=== PATIENT | female | born 1995 | race Hispanic/Latino ===

== ENCOUNTER 2018-12-26 08:47 | Emergency (ER) | payer SELFPAY ==
--- NOTE | 2018-12-26 11:00 | EDPHYS ---
Physician Documentation [facility] Name: Helen Maxwell Age: 23 yrs Sex: Female : 1995 Arrival Date: 12/26/2018 Time: 08:51 Bed 16 Private MD: ED Physician Carlos Prescott HPI: 12/26 10:08 This 23 yrs old Female presents to ER via Ambulatory with complaints of jr8 Vomiting, throat problem. 10:08 The patient presents to the emergency department with vomiting, 1 times since the onset jr8 of symptoms. Onset: The symptoms/episode began/occurred acutely, last night. Possible causes: unknown. The symptoms are aggravated by nothing. The symptoms are alleviated by nothing. Associated signs and symptoms: Pertinent positives: sore throat. Severity of symptoms: At their worst the symptoms were mild in the emergency department the symptoms have improved mildly. The patient has not experienced similar symptoms in the past. The patient has not recently seen a physician. Patient stated that she felt nauseated last night and then burped. As soon as she burped she vomited. No vomiting, abd pain, or diarrhea since incident. Stated that she went to bed and woke up with sore throat now. Denies any other symptoms and feels better otherwise . 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 - Social history:: Smoking status: Patient/guardian denies using tobacco. - Ebola Screening: : No symptoms or risks identified at this time. ROS: 10:08 Constitutional: Negative for fever, chills, and weight loss. jr8 10:08 ENT: Positive for sore throat, Negative for drainage from ear(s), ear pain, nasal discharge, rhinorrhea, sinus congestion, sinus pain, difficulty swallowing, difficulty handling secretions, hoarseness. 10:08 Abdomen/GI: Positive for nausea and vomiting, Negative for abdominal pain, diarrhea, abdominal cramps, abdominal distension, anorexia, dysphagia, hematemesis, black/tarry stool, rectal pain, rectal bleeding, bowel incontinence, flatulence. 10:08 All other systems are negative. Exam: 10:08 Constitutional: This is a well developed, well nourished patient who is awake, alert, jr8 and in no acute distress. Eyes: Pupils equal round and reactive to light, extra-ocular motions intact. Lids and lashes normal. Conjunctiva and sclera are non-icteric and not injected. Cornea within normal limits. Periorbital areas with no swelling, redness, or edema. ENT: Nares patent. No nasal discharge, no septal abnormalities noted. Tympanic membranes are normal and external auditory canals are clear. Oropharynx with no redness, swelling, or masses, exudates, or evidence of obstruction, uvula midline. Mucous membranes moist. Neck: Trachea midline, no thyromegaly or masses palpated, and no cervical lymphadenopathy. Supple, full range of motion without nuchal rigidity, or vertebral point tenderness. No Meningismus. Cardiovascular: Regular rate and rhythm with a normal S1 and S2. No gallops, murmurs, or rubs. Normal PMI, no JVD. No pulse deficits. Respiratory: Lungs have equal breath sounds bilaterally, clear to auscultation and percussion. No rales, rhonchi or wheezes noted. No increased work of breathing, no retractions or nasal flaring. Abdomen/GI: Soft, non-tender, with normal bowel sounds. No distension or tympany. No guarding or rebound. No evidence of tenderness throughout. Back: No spinal tenderness. No costovertebral tenderness. Full range of motion. Skin: Warm, dry with normal turgor. Normal color with no rashes, no lesions, and no evidence of cellulitis. MS/ Extremity: Pulses equal, no cyanosis. Neurovascular intact. Full, normal range of motion. Neuro: Awake and alert, GCS 15, oriented to person, place, time, and situation. Cranial nerves II-XII grossly intact. Motor strength 5/5 in all extremities. Sensory grossly intact. Cerebellar exam normal. Normal gait. Vital Signs: 09:00 BP 136 / 80; Pulse 63; Resp 16 S; Temp 98.3(O); Pulse Ox 100% on R/A; Weight 54.43 kg aa5 (R); Height 5 ft. 0 in. (152.40 cm) (R); Pain 0/10; 09:00 Body Mass Index 23.44 (54.43 kg, 152.40 cm) aa5 MDM: 08:55 Patient medically screened. jr8 10:59 Data reviewed: vital signs, nurses notes, lab test result(s), strep negative. Data jr8 interpreted: Pulse oximetry: on room air is 100 %. Interpretation: normal. Counseling: I had a detailed discussion with the patient and/or guardian regarding: the historical points, exam findings, and any diagnostic results supporting the discharge/admit diagnosis, lab results, the need for outpatient follow up, a family practitioner, to return to the emergency department if symptoms worsen or persist or if there are any questions or concerns that arise at home. 11:00 ED course: Discussed with patient that the sore throat is probably secondary to the jr8 vomiting and acid itself. No other pathologic findings on exam or labs. Patient good with this and will f/u. Feels much better . 12/26 09:47 Order name: Strep; Complete Time: 11:02 jr8 12/26 10:59 Order name: Throat Culture EDMS Administered Medications: No medications were administered Disposition: 15:38 Co-signature as Attending Physician, Carlos Prescott MD I agree with the assessment and rachelle plan of care. Disposition: 12/26/18 10:59 Discharged to Home. Impression: Pain in throat, Vomiting. - Condition is Stable. - Discharge Instructions: Nausea and Vomiting, Adult. - Prescriptions for Zofran 4 mg Oral Tablet - take 1 tablet by ORAL route every 12 hours As needed; 20 tablet. - Work release form, Medication Reconciliation Form, Thank You Letter, Antibiotic Education, Prescription Opioid Use form. - Follow up: Private Physician; When: 2 - 3 days; Reason: Recheck today's complaints, Continuance of care, Re-evaluation by your physician. - Problem is new. - Symptoms have improved. Signatures: Dispatcher [employer] EDMS Carlos Prescott MD MD cha Calderon, Audri RN RN aa5 Maximiliano Finnegan PA PA jr8 Corrections: (The following items were deleted from the chart) 11:15 10:59 12/26/2018 10:59 Discharged to Home. Impression: Pain in throat; Vomiting. aa5 Condition is Stable. Forms are Medication Reconciliation Form, Thank You Letter, Antibiotic Education, Prescription Opioid Use. Follow up: Private Physician; When: 2 - 3 days; Reason: Recheck today's complaints, Continuance of care, Re-evaluation by your physician. Problem is new. Symptoms have improved. jr8 11:18 11:15 12/26/2018 10:59 Discharged to Home. Impression: Pain in throat; Vomiting. aa5 Condition is Stable. Discharge Instructions: Nausea and Vomiting, Adult. Prescriptions for Zofran 4 mg Oral Tablet - take 1 tablet by ORAL route every 12 hours As needed; 20 tablet. and Forms are Medication Reconciliation Form, Thank You Letter, Antibiotic Education, Prescription Opioid Use. Follow up: Private Physician; When: 2 - 3 days; Reason: Recheck today's complaints, Continuance of care, Re-evaluation by your physician. Problem is new. Symptoms have improved. aa5
--- NOTE | 2018-12-26 11:00 | ER ---
Nurse's Notes [facility] Name: Helen Maxwell Age: 23 yrs Sex: Female : 1995 Arrival Date: 12/26/2018 Time: 08:51 Bed 16 Private MD: Diagnosis: Pain in throat;Vomiting Presentation: 12/26 09:00 Presenting complaint: Patient states: vomiting during the night. Pt states "I am not aa5 nauseated anymore but I woke up feeling like my throat is swollen". Pt denies sore throat. 09:00 Transition of care: patient was not received from another setting of care. Onset of aa5 symptoms was December 26, 2018. Risk Assessment: Do you want to hurt yourself or someone else? Patient reports no desire to harm self or others. Initial Sepsis Screen: Does the patient meet any 2 criteria? No. Patient's initial sepsis screen is negative. Does the patient have a suspected source of infection? No. Patient's initial sepsis screen is negative. Care prior to arrival: None. 09:00 Method Of Arrival: Ambulatory aa5 09:00 Acuity: ALEXX 4 aa5 Triage Assessment: 09:00 General: Appears comfortable, Behavior is calm, cooperative. GI: Reports vomiting. 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 - Social history:: Smoking status: Patient/guardian denies using tobacco. - Ebola Screening: : No symptoms or risks identified at this time. Screenin:00 Abuse screen: Denies threats or abuse. Nutritional screening: No deficits noted. aa5 Tuberculosis screening: No symptoms or risk factors identified. Fall Risk None identified. Assessment: 09:00 General: Appears comfortable, Behavior is calm, cooperative. Pain: Denies pain. Neuro: aa5 Level of Consciousness is awake, alert, obeys commands, Oriented to person, place, time, situation. Cardiovascular: Heart tones S1 S2 present Rhythm is regular. Respiratory: Airway is patent Respiratory effort is even, unlabored, Respiratory pattern is regular, symmetrical. GI: Abdomen is round non-distended, Bowel sounds present X 4 quads. Abd is soft and non tender X 4 quads. Reports nausea, vomiting. : No signs and/or symptoms were reported regarding the genitourinary system. Denies burning with urination. EENT: Throat is pink with gag reflex present. Derm: Skin is pink, warm \\T\\ dry. Musculoskeletal: Range of motion: intact in all extremities. 09:58 Reassessment: Patient is alert, oriented x 3, equal unlabored respirations, skin aa5 warm/dry/pink. Strep sent to lab . 11:10 Reassessment: Patient is alert, oriented x 3, equal unlabored respirations, skin aa5 warm/dry/pink. Vital Signs: 09:00 BP 136 / 80; Pulse 63; Resp 16 S; Temp 98.3(O); Pulse Ox 100% on R/A; Weight 54.43 kg aa5 (R); Height 5 ft. 0 in. (152.40 cm) (R); Pain 0/10; 09:00 Body Mass Index 23.44 (54.43 kg, 152.40 cm) aa5 ED Course: 08:51 Patient arrived in ED. mr 08:54 Maximiliano Finnegan PA is PHCP. jr8 08:54 Carlos Prescott MD is Attending Physician. jr8 08:55 Arm band placed on Patient placed in an exam room, on a stretcher. aa5 08:55 Patient has correct armband on for positive identification. Bed in low position. Call aa5 light in reach. Side rails up X 1. 09:02 Beth Blum, GAUDENCIO is Primary Nurse. aa5 09:14 Triage completed. aa5 11:10 No provider procedures requiring assistance completed. Patient did not have IV access aa5 during this emergency room visit. Administered Medications: No medications were administered Outcome: 10:59 Discharge ordered by . jr8 11:10 Discharged to home ambulatory, with family. aa5 11:10 Condition: good 11:10 Discharge instructions given to patient, Instructed on discharge instructions, follow up and referral plans. medication usage, Demonstrated understanding of instructions, follow-up care, medications. 11:15 Patient left the ED. aa5 Signatures: Ameena Bailey mr Beth Blum, GAUDENCIO RN aa5 Maximiliano Finnegan PA PA jr8 Corrections: (The following items were deleted from the chart) 11:35 11:18 Patient left the ED. jaye aa5
== END 2018-12-26 11:18 | disposition home or self-care (01) ==
LOC: ER 08:47
DX: R11.10 Vomiting, unspecified (principal); R07.0 Pain in throat
CPT/HCPCS: 87070; 87081; 99281

== ENCOUNTER 2019-03-03 04:10 | Emergency (ER) | payer SELFPAY ==
[2019-03-03] MEDS ORDERED: FAMOTIDINE 20 MG/2 ML VIAL IV ONE (05:07)
[2019-03-03] MEDS ORDERED: MAGNE/ALUM HYDROXD 30 ML UCUP ONE (05:07)
[2019-03-03] MEDS ORDERED: LIDOCAINE VISCOUS 2% SOLN 15 ML UDC ONE (05:07)
[2019-03-03] MEDS ORDERED: NA CHLORIDE 0.9% 500 ML ONE (05:09)
[2019-03-03 05:33] LABS: Absolute Lymphocytes (CBC) 2.1 K/uL (0.7-4.9); Basophils % 0.2 % (0-1.3); Hematocrit 39.4 % (36.0-45.0); Lymphocytes % 13.9 % (15.3-44.8); MPV 9.2 fL (7.6-11.3); RBC Red Blood Cell Count 4.31 M/uL (3.86-4.86)
[2019-03-03 05:48] LABS: ALT/SGPT 19 U/L (12-78); AST/SGOT 11 U/L (15-37); Albumin 3.9 g/dL (3.4-5.0); Alkaline Phosphatase 103 U/L (45-117); BUN Blood Urea Nitrogen 11 mg/dL (7-18); Bicarbonate 24 mmol/L (21-32); Bilirubin Direct 0.1 mg/dL (0-0.2); Bilirubin Total 0.3 mg/dL (0.2-1.0); Glucose Level 86 mg/dL (74-106); Lipase 83 U/L (73-393); Potassium 3.8 mmol/L (3.5-5.1); Protein, Total 7.4 g/dL (6.4-8.2); Sodium Level 137 mmol/L (136-145)
[2019-03-03] MEDS ORDERED: NA CHLORIDE 0.9% 1,000 ML ONE (06:15)
--- NOTE | 2019-03-03 07:51 | EDPHYS ---
Physician Documentation [facility] Name: Helen Maxwell Age: 23 yrs Sex: Female : 1995 Arrival Date: 03/03/2019 Time: 04:13 Bed 17 Private MD: ED Physician Carlos Prescott HPI: 03/03 05:04 This 23 yrs old Female presents to ER via Ambulatory with complaints of rachelle Abdominal Pain. 05:04 The patient presents with abdominal pain in the epigastric area, in the upper abdomen, rachelle in the lower abdomen. Onset: The symptoms/episode began/occurred just prior to arrival, last night. The symptoms do not radiate. Associated signs and symptoms: none. The symptoms are described as burning, crampy. Modifying factors: The symptoms are alleviated by nothing, the symptoms are aggravated by food. Severity of pain: At its worst the pain was moderate in the emergency department the pain is unchanged. The patient has not experienced similar symptoms in the past. 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 - Social history:: Smoking status: Patient uses tobacco products, vape. - Ebola Screening: : No symptoms or risks identified at this time. - Family history:: not pertinent. ROS: 05:04 Constitutional: Negative for fever, chills, and weight loss, Eyes: Negative for injury, rachelle pain, redness, and discharge, ENT: Negative for injury, pain, and discharge, Neck: Negative for injury, pain, and swelling, Cardiovascular: Negative for chest pain, palpitations, and edema, Respiratory: Negative for shortness of breath, cough, wheezing, and pleuritic chest pain, Back: Negative for injury and pain, : Negative for injury, bleeding, discharge, and swelling, MS/Extremity: Negative for injury and deformity, Skin: Negative for injury, rash, and discoloration, Neuro: Negative for headache, weakness, numbness, tingling, and seizure. 05:04 Abdomen/GI: Positive for abdominal pain, of the right upper quadrant, left upper quadrant, right lower quadrant and left lower quadrant. Exam: 05:04 Constitutional: This is a well developed, well nourished patient who is awake, alert, rachelle and in no acute distress. Head/Face: Normocephalic, atraumatic. Eyes: Pupils equal round and reactive to light, extra-ocular motions intact. Lids and lashes normal. Conjunctiva and sclera are non-icteric and not injected. Cornea within normal limits. Periorbital areas with no swelling, redness, or edema. ENT: Nares patent. No nasal discharge, no septal abnormalities noted. Tympanic membranes are normal and external auditory canals are clear. Oropharynx with no redness, swelling, or masses, exudates, or evidence of obstruction, uvula midline. Mucous membranes moist. Neck: Trachea midline, no thyromegaly or masses palpated, and no cervical lymphadenopathy. Supple, full range of motion without nuchal rigidity, or vertebral point tenderness. No Meningismus. Chest/axilla: Normal chest wall appearance and motion. Nontender with no deformity. No lesions are appreciated. Cardiovascular: Regular rate and rhythm with a normal S1 and S2. No gallops, murmurs, or rubs. Normal PMI, no JVD. No pulse deficits. Respiratory: Lungs have equal breath sounds bilaterally, clear to auscultation and percussion. No rales, rhonchi or wheezes noted. No increased work of breathing, no retractions or nasal flaring. Abdomen/GI: Soft, non-tender, with normal bowel sounds. No distension or tympany. No guarding or rebound. No evidence of tenderness throughout. Back: No spinal tenderness. No costovertebral tenderness. Full range of motion. Skin: Warm, dry with normal turgor. Normal color with no rashes, no lesions, and no evidence of cellulitis. MS/ Extremity: Pulses equal, no cyanosis. Neurovascular intact. Full, normal range of motion. Neuro: Awake and alert, GCS 15, oriented to person, place, time, and situation. Cranial nerves II-XII grossly intact. Motor strength 5/5 in all extremities. Sensory grossly intact. Cerebellar exam normal. Normal gait. Psych: Awake, alert, with orientation to person, place and time. Behavior, mood, and affect are within normal limits. Vital Signs: 04:15 BP 136 / 98; Pulse 77; Resp 17 S; Temp 98.3(O); Pulse Ox 100% on R/A; Weight 52.16 kg cc3 (R); Height 5 ft. 0 in. (152.40 cm) (R); Pain 10/10; 05:30 BP 124 / 81; Pulse 73; Resp 17 S; Pulse Ox 100% on R/A; cc3 06:32 BP 114 / 64; Pulse 81; Resp 17 S; Pulse Ox 100% on R/A; Pain 0/10; cc3 07:31 BP 112 / 79; Pulse 68; Resp 18; Pulse Ox 99% on R/A; Pain 0/10; em 04:15 Body Mass Index 22.46 (52.16 kg, 152.40 cm) cc3 MDM: 04:17 Patient medically screened. [facility] 05:06 Data reviewed: vital signs, nurses notes, lab test result(s), radiologic studies, plain rachelle films. 03/03 05:04 Order name: Basic Metabolic Panel; Complete Time: 05:49 [facility] 03/03 05:04 Order name: CBC with Diff; Complete Time: 05:49 [facility] 03/03 05:04 Order name: Creatinine for Radiology; Complete Time: 05:49 [facility] 03/03 05:04 Order name: Hepatic Function; Complete Time: 05:49 [facility] 03/03 05:04 Order name: Lipase; Complete Time: 05:49 [facility] 03/03 06:11 Order name: Urine Dipstick--Ancillary (enter results) [facility] 03/03 05:04 Order name: IV Saline Lock; Complete Time: 05:28 [facility] 03/03 05:07 Order name: Abdomen 1 View (KUB) XRAY [facility] 03/03 05:52 Order name: CT Abd/Pelvis - IV Contrast Only: ro appy [facility] 03/03 06:11 Order name: Urine --Ancillary (enter results) [facility] 03/03 05:04 Order name: Labs collected and sent; Complete Time: 05:28 [facility] 03/03 05:04 Order name: Urine Dipstick-Ancillary (obtain specimen); Complete Time: 06:35 [facility] 03/03 05:04 Order name: Urine Test (obtain specimen); Complete Time: 06:35 [facility] Administered Medications: 05:10 Drug: GI Cocktail without - (Maalox Suspension 30 ml, Lidocaine Liquid 2 % 15 cc3 ml) Route: PO; 05:40 Follow up: Response: No adverse reaction; Pain is decreased cc3 05:20 Drug: NS 0.9% 500 ml Route: IV; Rate: bolus; Site: right antecubital; cc3 06:00 Follow up: Response: No adverse reaction; IV Status: Completed infusion; IV Intake: cc3 500ml 05:20 Drug: Pepcid 20 mg Route: IVP; Site: right antecubital; cc3 05:40 Follow up: Response: No adverse reaction; Pain is decreased cc3 06:15 Drug: NS 0.9% 500 ml Route: IV; Rate: bolus; Site: right antecubital; cc3 07:59 Follow up: IV Status: Completed infusion; IV Intake: 500ml em Disposition: 03/03/19 07:49 Discharged to Home. Impression: Abdominal tenderness, Functional dyspepsia, Unspecified ovarian cysts. - Condition is Stable. - Discharge Instructions: Abdominal Pain, Adult, Gastritis, Adult, Ovarian Cyst, Gastritis, Adult, [id number], Abdominal Pain, Adult, [id number], Ovarian Cyst, [id number]. - Prescriptions for Bentyl 20 mg Oral Tablet - take 1 tablet by ORAL route every 6 hours As needed; 20 tablet. Pepcid 20 mg Oral Tablet - take 1 tablet by ORAL route every 12 hours for 10 days; 20 tablet. Zofran 4 mg Oral Tablet - take 1 tablet by ORAL route every 12 hours As needed; 20 tablet. - Medication Reconciliation Form, Thank You Letter, Antibiotic Education, Prescription Opioid Use, Work release form form. - Follow up: Private Physician; When: 2 - 3 days; Reason: Recheck today's complaints, Continuance of care, Re-evaluation by your physician. Follow up: Cici Holley; When: 2 - 3 days; Reason: Recheck today's complaints, Re-evaluation by your physician. - Problem is new. - Symptoms have improved. Signatures: Dispatcher [employer] Carlos Howell MD MD cha Munoz, Edgar, APPRENTICE COOK APPRENTICE COOK Hannah Thomas cc3 Corrections: (The following items were deleted from the chart) 07:59 07:49 03/03/2019 07:49 Discharged to Home. Impression: Abdominal tenderness; Functional em dyspepsia; Unspecified ovarian cysts. Condition is Stable. Discharge Instructions: Abdominal Pain, Adult, Gastritis, Adult, Gastritis, Adult, [id number], Abdominal Pain, Adult, [id number]. Prescriptions for Bentyl 20 mg Oral Tablet - take 1 tablet by ORAL route every 6 hours As needed; 20 tablet, Pepcid 20 mg Oral Tablet - take 1 tablet by ORAL route every 12 hours for 10 days; 20 tablet, Zofran 4 mg Oral Tablet - take 1 tablet by ORAL route every 12 hours As needed; 20 tablet. and Forms are Medication Reconciliation Form, Thank You Letter, Antibiotic Education, Prescription Opioid Use. Follow up: Private Physician; When: 2 - 3 days; Reason: Recheck today's complaints, Continuance of care, Re-evaluation by your physician. Follow up: Cici Holley; When: 2 - 3 days; Reason: Recheck today's complaints, Re-evaluation by your physician. Problem is new. Symptoms have improved. rachelle
--- NOTE | 2019-03-03 07:51 | ER ---
Nurse's Notes [facility] Name: Helen Maxwell Age: 23 yrs Sex: Female : 1995 Arrival Date: 03/03/2019 Time: 04:13 Bed 17 Private MD: Diagnosis: Abdominal tenderness;Functional dyspepsia;Unspecified ovarian cysts Presentation: 03/03 04:15 Presenting complaint: Patient states: generalized abdominal pain since last night. cc3 Transition of care: patient was not received from another setting of care. Onset of symptoms was March 02, 2019. Risk Assessment: Do you want to hurt yourself or someone else? Patient reports no desire to harm self or others. Initial Sepsis Screen: Does the patient meet any 2 criteria? No. Patient's initial sepsis screen is negative. Does the patient have a suspected source of infection? Yes: Acute abdominal pain. Care prior to arrival: Medication(s) given: took acid reflux pills at 0030H at home. 04:15 Method Of Arrival: Ambulatory cc3 04:15 Acuity: ALEXX 3 cc3 Triage Assessment: 04:15 General: Appears in no apparent distress. comfortable, Behavior is calm, cooperative, cc3 appropriate for age. Pain: Complains of pain in generalized abdomen Pain currently is 10 out of 10 on a pain scale. Quality of pain is described as aching. EENT: No signs and/or symptoms were reported regarding the EENT system. Neuro: Level of Consciousness is awake, alert, obeys commands, Oriented to person, place, time, situation, Appropriate for age. Cardiovascular: Denies chest pain, Capillary refill < 3 seconds Patient's skin is warm and dry. Respiratory: Airway is patent Respiratory effort is even, unlabored, Respiratory pattern is regular, symmetrical. GI: Abdomen is round. : No signs and/or symptoms were reported regarding the genitourinary system. Derm: Skin is intact, is healthy with good turgor, Skin is pink, warm \T\ dry. normal. Musculoskeletal: Circulation, motion, and sensation intact. Range of motion: intact in all extremities. DISABILITY SPECIALIST: 04:15 LMP was cc3 Historical: - Allergies: 04:15 No Known Allergies; cc3 - PMHx: 04:15 None; cc3 - PSHx: 04:15 None; cc3 - Immunization history:: Adult Immunizations not up to date. - Social history:: Smoking status: Patient uses tobacco products, vape. - Ebola Screening: : No symptoms or risks identified at this time. - Family history:: not pertinent. Screenin:15 Abuse screen: Denies threats or abuse. Denies injuries from another. Nutritional cc3 screening: No deficits noted. Tuberculosis screening: No symptoms or risk factors identified. Fall Risk Ambulatory Aid- None/Bed Rest/Nurse Assist (0 pts). Gait- Normal/Bed Rest/Wheelchair (0 pts) Mental Status- Oriented to own ability (0 pts). Assessment: 04:15 General: Appears in no apparent distress. uncomfortable, Behavior is calm, cooperative, cc3 appropriate for age. Pain: Complains of pain in generalized abdomen Pain currently is 10 out of 10 on a pain scale. Quality of pain is described as aching. Neuro: Level of Consciousness is awake, alert, obeys commands, Oriented to person, place, time, situation, Appropriate for age. Cardiovascular: Denies chest pain, Capillary refill < 3 seconds Patient's skin is warm and dry. Respiratory: Airway is patent Respiratory effort is even, unlabored, Respiratory pattern is regular, symmetrical. GI: Abdomen is round non-distended, Bowel sounds present X 4 quads. Abd is soft Abdomen is tender to palpation X 4 quads. : No signs and/or symptoms were reported regarding the genitourinary system. EENT: No signs and/or symptoms were reported regarding the EENT system. Derm: Skin is intact, is healthy with good turgor, Skin is pink, warm \T\ dry. normal. Musculoskeletal: Circulation, motion, and sensation intact. Range of motion: intact in all extremities. 05:36 Reassessment: Patient appears in no apparent distress at this time. Patient and/or cc3 family updated on plan of care and expected duration. Pain level reassessed. Patient is alert, oriented x 3, equal unlabored respirations, skin warm/dry/pink. 06:30 Reassessment: Patient appears in no apparent distress at this time. Patient and/or cc3 family updated on plan of care and expected duration. Pain level reassessed. Patient is alert, oriented x 3, equal unlabored respirations, skin warm/dry/pink. Patient came back from CT scan department, awaiting result. Patient denies pain at this time. Patient states feeling better. Patient states symptoms have improved. 07:05 Reassessment: Patient appears in no apparent distress at this time. Patient and/or em family updated on plan of care and expected duration. Pain level reassessed. Patient is alert, oriented x 3, equal unlabored respirations, skin warm/dry/pink. Patient denies pain at this time. Vital Signs: 04:15 BP 136 / 98; Pulse 77; Resp 17 S; Temp 98.3(O); Pulse Ox 100% on R/A; Weight 52.16 kg cc3 (R); Height 5 ft. 0 in. (152.40 cm) (R); Pain 10/10; 05:30 BP 124 / 81; Pulse 73; Resp 17 S; Pulse Ox 100% on R/A; cc3 06:32 BP 114 / 64; Pulse 81; Resp 17 S; Pulse Ox 100% on R/A; Pain 0/10; cc3 07:31 BP 112 / 79; Pulse 68; Resp 18; Pulse Ox 99% on R/A; Pain 0/10; em 04:15 Body Mass Index 22.46 (52.16 kg, 152.40 cm) cc3 ED Course: 04:13 Patient arrived in ED. ag3 04:14 Hannah Reyes is Primary Nurse. cc3 04:15 Arm band placed on right wrist. Patient notified of wait time. cc3 04:15 Patient has correct armband on for positive identification. Bed in low position. Call cc3 light in reach. Side rails up X 1. Pulse ox on. NIBP on. 04:16 Carlos Prescott MD is Attending Physician. rachelle 04:26 Triage completed. cc3 05:20 Inserted saline lock: 20 gauge in right antecubital area, using aseptic technique. cc3 Blood collected. 05:50 Abdomen 1 View (KUB) XRAY In Process Unspecified. EDMS 06:03 X-ray completed. Patient tolerated procedure well. Patient moved back from radiology. mh1 07:00 Report given to SARA Ayoub. cc3 07:15 Mega Vann, SARA is Primary Nurse. em 07:24 CT Abd/Pelvis - IV Contrast Only: ro appy In Process Unspecified. EDMS 07:49 Cici Holley MD is Referral Physician. rachelle 07:58 No provider procedures requiring assistance completed. IV discontinued, intact, em bleeding controlled, No redness/swelling at site. Pressure dressing applied. Administered Medications: 05:10 Drug: GI Cocktail without - (Maalox Suspension 30 ml, Lidocaine Liquid 2 % 15 cc3 ml) Route: PO; 05:40 Follow up: Response: No adverse reaction; Pain is decreased cc3 05:20 Drug: NS 0.9% 500 ml Route: IV; Rate: bolus; Site: right antecubital; cc3 06:00 Follow up: Response: No adverse reaction; IV Status: Completed infusion; IV Intake: cc3 500ml 05:20 Drug: Pepcid 20 mg Route: IVP; Site: right antecubital; cc3 05:40 Follow up: Response: No adverse reaction; Pain is decreased cc3 06:15 Drug: NS 0.9% 500 ml Route: IV; Rate: bolus; Site: right antecubital; cc3 07:59 Follow up: IV Status: Completed infusion; IV Intake: 500ml em Intake: 06:00 IV: 500ml; Total: 500ml. cc3 07:59 IV: 500ml; Total: 1000ml. em Outcome: 07:49 Discharge ordered by MD. rachelle 07:58 Discharged to home ambulatory, with family. em 07:58 Condition: good 07:58 Discharge instructions given to patient, Instructed on discharge instructions, follow up and referral plans. medication usage, Demonstrated understanding of instructions, follow-up care, medications, Prescriptions given X 3. 07:59 Patient left the ED. em Signatures: Dispatcher [employer] EDMN Carlos Prescott MD MD cha Harvey, Martha 1 Mega Vann, IMPROVEMENT LEADER IMPROVEMENT LEADER em Hannah Reyes cc3 Dayami Stephen 3 Corrections: (The following items were deleted from the chart) 06:37 06:32 BP 114 / 64; Pulse 81bpm; Resp 17bpm; Spontaneous; Pulse Ox 100% RA; cc3 cc3
[2019-03-03 13:16] LABS: Urine Blood NEGATIVE (NEG); Urine Glucose NEGATIVE (NEG); Urine Protein NEGATIVE (NEG); Urine Specific Gravity 1.015 (1.005-1.030); Urine pH 5.5 (5.0-7.0)
--- NOTE | 2019-03-03 13:48 | RAD REPORT ---
EXAM DESCRIPTION: CT - Abdomen Pelvis W Contrast - 03/03/2019 12:58 pm CLINICAL HISTORY: Diffuse abdominal pain COMPARISON: Abdomen films same date TECHNIQUE: Biphasic, helical CT imaging of the abdomen and pelvis was performed following 100 ml non -ionic IV contrast. No oral contrast administered. All CT scans are performed using dose optimization technique as appropriate and may include automated exposure control or mA/KV adjustment according to patient size. FINDINGS: No suspicious findings in the lung bases. The liver, spleen, and pancreas show no suspicious findings. Gallbladder and biliary tree are also wi thout suspicious finding. Symmetric renal function is seen with no hydronephrosis or suspicious renal mass. No pyelonephritis o r acute parenchymal process. No bladder abnormalities. No adrenal abnormalities. No dilated bowel loops or bowel wall thickening. The appendix is not well visualized. No direct or in direct evidence for acute appendicitis. No free air or pneumatosis. Free fluid is present in the cul de sac still within physiologic limits. Uterus and left ovary show no suspicious findings. Right ovar y is less distinct. There does appear to be an ovarian cyst approximately 2.5 cm in size. Fluid is po tentially from a ruptured or leaking cyst. No surgically emergent finding seen. No hernia, mass or b ulky lymphadenopathy. No suspicious bony findings. Due to technical malfunction, no reporting was available at the time of the study. Image access was l imited. A telephone verbal report was provided when imaging became available. Final dictation was del ayed. IMPRESSION: No bowel obstruction, free air or surgically emergent finding. Appendicitis is not suspe cted. Free fluid in the cul de sac is within physiologic limits but is potentially from a leaking right ova rufino cyst.
--- NOTE | 2019-03-03 14:47 | RAD REPORT ---
EXAM DESCRIPTION: RAD - Abdomen 1 View (KUB) - 03/03/2019 12:42 pm CLINICAL HISTORY: Abdominal pain Due to technical malfunction this and limited availability of images, final written report was bre quinonez. COMPARISON: None. FINDINGS: Bowel gas pattern is non-specific. No obstruction, free air or pneumatosis. No suspicious calcifications. No acute bone finding. Right lateral tilt of the spine is likely positioning artifact rather than sco liosis. IMPRESSION: Negative KUB examination.
== END 2019-03-03 07:59 | disposition home or self-care (01) ==
LOC: ER 04:10
DX: K30 Functional dyspepsia (principal); N83.201 Unspecified ovarian cyst, right side; Z72.0 Tobacco use
CPT/HCPCS: 36415; 74018; 74177; 80048; 80076; 81003; 81025; 83690; 85025; 96361; 96374; 99284; J7030; Q9967

== ENCOUNTER 2021-07-26 16:33 | Emergency (ER) | payer BC ==
[2021-07-26 21:04] LABS: SARS-COV-2 RT PCR POSITIVE (NEGATIVE)
--- NOTE | 2021-07-26 21:06 | EDPHYS ---
Physician Documentation [facility] Name: Helen Maxwell Age: 26 yrs Sex: Female : 1995 Arrival Date: 07/26/2021 Time: 16:38 Bed Waiting Private MD: ED Physician Vinicio Adams HPI: 07/26 20:45 This 26 yrs old Female presents to ER via Ambulatory with complaints of Runny kb Nose, Congestion, Sore Throat, Headache. 20:45 The patient or guardian reports cough, that is intermittent, described as mild. Onset: kb The symptoms/episode began/occurred 2 day(s) ago. Severity of symptoms: At their worst the symptoms were mild, in the emergency department the symptoms are unchanged. Modifying factors: The symptoms are alleviated by nothing, the symptoms are aggravated by nothing. Associated signs and symptoms: Pertinent positives: sore throat, Pertinent negatives: chest pain, diarrhea, ear ache, fever, nausea, vomiting. The patient has not experienced similar symptoms in the past. The patient has not recently seen a physician. Pt reports cough, congestion, headache and sore throat for 2 days. Recent covid exposure. Historical: - Allergies: 18:57 No Known Drug Allergies; ll1 - PMHx: 18:57 None; ll1 - PSHx: 18:57 None; ll1 - Immunization history:: Client reports receiving the 1st dose of the Covid vaccine, Flu vaccine is not up to date. - Social history:: Smoking status: Reported history of juuling and/or vaping. ROS: 20:46 Constitutional: Negative for fever, chills, and weight loss. kb 20:46 ENT: Positive for rhinorrhea, sinus congestion. 20:46 Respiratory: Positive for cough, Negative for dyspnea on exertion, hemoptysis, orthopnea, pleurisy, shortness of breath, sputum production, wheezing. 20:46 Neuro: Positive for headache. 20:46 All other systems are negative. Exam: 20:46 Constitutional: This is a well developed, well nourished patient who is awake, alert, kb and in no acute distress. Head/Face: Normocephalic, atraumatic. ENT: Moist Mucous membranes Cardiovascular: Regular rate and rhythm with a normal S1 and S2. No gallops, murmurs, or rubs. No pulse deficits. Respiratory: Respirations even and unlabored. No increased work of breathing. Talking in full sentences Skin: Warm, dry with normal turgor. Normal color. MS/ Extremity: Pulses equal, no cyanosis. Neurovascular intact. Full, normal range of motion. Neuro: Awake and alert, GCS 15, oriented to person, place, time, and situation. Moves all extremities. Normal gait. Psych: Awake, alert, with orientation to person, place and time. Behavior, mood, and affect are within normal limits. Vital Signs: 18:57 BP 134 / 93; Pulse 82; Resp 17; Temp 98.3; Pulse Ox 98% ; Weight 83.91 kg; Height 4 ft. ll1 11 in. (149.86 cm); Pain 7/10; 18:57 Body Mass Index 37.37 (83.91 kg, 149.86 cm) ll1 MDM: 20:01 Patient medically screened. kb 20:47 Data reviewed: vital signs, nurses notes. Data interpreted: Pulse oximetry: on room air kb is 98 %. Interpretation: normal. 21:04 Counseling: I had a detailed discussion with the patient and/or guardian regarding: the kb historical points, exam findings, and any diagnostic results supporting the discharge/admit diagnosis, lab results, the need for outpatient follow up, a family practitioner, to return to the emergency department if symptoms worsen or persist or if there are any questions or concerns that arise at home. 07/26 19:36 Order name: COVID-19/FLU A+B (Document "Date of Onset" if Symptomatic); Complete Time: kb 21:05 Administered Medications: No medications were administered Disposition: 21:25 Co-signature as Attending Physician, Vinicio Adams MD. pkl Disposition Summary: 07/26/21 21:05 Discharge Ordered Location: Home kb Condition: Stable kb Diagnosis - Coronavirus infection, unspecified kb Followup: kb - With: Emergency Department - When: As needed - Reason: Worsening of condition Followup: kb - With: Private Physician - When: 2 - 3 days - Reason: Recheck today's complaints, Continuance of care, Re-evaluation by your physician Discharge Instructions: - Discharge Summary Sheet kb - Viral Respiratory Infection, [id number] kb - COVID-19 kb Forms: - Medication Reconciliation Form kb - Thank You Letter kb - Antibiotic Education kb - Prescription Opioid Use kb Signatures: Dispatcher [employer] Caridad Guaman, APPLIED BEHAVIOR SPECIALIST-C APPLIED BEHAVIOR SPECIALIST-Ckb Vinicio Adams MD MD pkl Lewis, Lynsay, RN RN ll1
--- NOTE | 2021-07-26 21:06 | ER ---
Nurse's Notes [facility] Name: Helen Maxwell Age: 26 yrs Sex: Female : 1995 Arrival Date: 07/26/2021 Time: 16:38 Bed Waiting Private MD: Diagnosis: Coronavirus infection, unspecified Presentation: 07/26 18:57 Chief complaint: Patient states: Runny nose, cough, sore throat, DOSS, congestion for 2 ll1 days. Exposed to covid. Coronavirus screen: Vaccine status: Patient reports receiving the 1st dose of the Covid vaccine. Client denies travel out of the [place] in the last 14 days. congestion, cough unrelated to allergies, fatigue, headache, nausea, sore throat, vomiting. Ebola Screen: Patient denies travel to an Ebola-affected area in the 21 days before illness onset. Resp Distress? No respiratory distress is noted at this time. Initial Sepsis Screen: Does the patient meet any 2 criteria? No. Patient's initial sepsis screen is negative. Does the patient have a suspected source of infection? Yes: Productive cough/pneumonia. Risk Assessment: Do you want to hurt yourself or someone else? Patient reports no desire to harm self or others. Onset of symptoms was July 25, 2021. 18:57 Method Of Arrival: Ambulatory ll1 18:57 Acuity: ALEXX 4 ll1 Historical: - Allergies: 18:57 No Known Drug Allergies; ll1 - PMHx: 18:57 None; ll1 - PSHx: 18:57 None; ll1 - Immunization history:: Client reports receiving the 1st dose of the Covid vaccine, Flu vaccine is not up to date. - Social history:: Smoking status: Reported history of juuling and/or vaping. Vital Signs: 18:57 BP 134 / 93; Pulse 82; Resp 17; Temp 98.3; Pulse Ox 98% ; Weight 83.91 kg; Height 4 ft. ll1 11 in. (149.86 cm); Pain 7/10; 18:57 Body Mass Index 37.37 (83.91 kg, 149.86 cm) ll1 ED Course: 16:38 Patient arrived in ED. mr 18:59 Triage completed. ll1 18:59 Arm band placed on. ll1 20:00 Caridad Corbett FNP-C is PHCP. kb 20:00 Vinicio Adams MD is Attending Physician. kb 21:04 Caridad Corbett FNP-C is PHCP. kb 21:04 Vinicio Adams MD is Attending Physician. kb Administered Medications: No medications were administered Outcome: 21:05 Discharge ordered by . kb 21:09 Patient left the ED. kb Signatures: Caridad Corbett FNP-C OVERHEAD CLEANER-Kendall Bailey Ameena mr Collin Dallas, RN RN ll1
[2021-07-26 21:13] VITALS: BP 134/93; TEMP 98.3; O2SAT 98
== END 2021-07-26 21:09 | disposition home or self-care (01) ==
LOC: ER 16:33
DX: U07.1 COVID-19 (principal)
CPT/HCPCS: 0240U; 99281